=== PATIENT | male | born 1980 | race Caucasian/White ===

== ENCOUNTER 2017-12-08 06:10 | Emergency (ER) | payer SELFPAY ==
[~2017-12-08] VITALS: Ht 175.3 cm; Wt 113.4 kg
[2017-12-08 06:17] VITALS: BP 131/73; Ht 175.3 cm; Wt 113.4 kg
== END 2017-12-08 08:17 | disposition home or self-care (01) ==
LOC: ED 06:10
DX: S80.01XA Contusion of right knee, initial encounter (principal); J45.909 Unspecified asthma, uncomplicated; G43.909 Migraine, unspecified, not intractable, without status migrainosus; V89.2XXA Person injured in unspecified motor-vehicle accident, traffic, initial encounter; Y93.I9 Activity, other involving external motion; Y92.488 Other paved roadways as the place of occurrence of the external cause; Y99.8 Other external cause status
CPT/HCPCS: 90715; Q0092

== ENCOUNTER 2018-11-24 09:33 | Emergency (ER) | payer SELFPAY ==
[~2018-11-24] VITALS: Ht 175.3 cm; Wt 114.3 kg
[2018-11-24 09:37] VITALS: Ht 175.3 cm; Wt 114.3 kg
[2018-11-24 10:32] VITALS: BP 121/90
== END 2018-11-24 10:32 | disposition home or self-care (01) ==
LOC: ED 09:33
DX: S70.11XA Contusion of right thigh, initial encounter (principal); J45.909 Unspecified asthma, uncomplicated; G43.909 Migraine, unspecified, not intractable, without status migrainosus; W54.0XXA Bitten by dog, initial encounter; Y93.89 Activity, other specified; Y92.89 Other specified places as the place of occurrence of the external cause; Y99.8 Other external cause status
CPT/HCPCS: 90715